=== PATIENT | female | born 1975 | race Caucasian/White ===

== ENCOUNTER 2023-04-28 20:17 | Emergency (ER) | payer MEDICAID ==
[~2023-04-28] VITALS: Ht 152.4 cm; Wt 99.8 kg
[2023-04-28 23:13] LABS: BASOPHILS # (AUTO) 0.1 K/uL (0.0-0.2); BASOPHILS % (AUTO) 0.7 % (0.0-2.0); EOSINOPHILS # (AUTO) 0.1 K/uL (0.0-0.7); EOSINOPHILS % (AUTO) 1.1 % (0.0-6.0); HEMATOCRIT 38 % (33-45); HEMOGLOBIN 12.6 g/dL (11.5-14.8); LYMPHOCYTES % (AUTO) 19.9 % (20.0-44.0); MEAN CORPUSCULAR HEMOGLOBIN 26 PG (26.0-33.0); MEAN CORPUSCULAR HGB CONC 33 g/dl (31.0-36.0); MEAN CORPUSCULAR VOLUME 79 fL (82-100); MONOCYTES # (AUTO) 0.7 K/uL (0.1-1.30); MONOCYTES % (AUTO) 7.2 % (2.0-12.0); NEUTROPHILS # (AUTO) 7.1 K/uL (1.8-8.9); NEUTROPHILS % (AUTO) 71.1 % (43.0-81.0); PLATELET COUNT (AUTO) 362 K/uL (150-450); RED BLOOD CELL COUNT(AUTO) 4.83 MIL/uL (4.0-5.2); RED CELL DISTRIBUTION WIDTH 18.7 % (11.5-15.0); WHITE BLOOD COUNT (AUTO) 9.9 K/uL (4.3-11.0)
[2023-04-28 23:29] LABS: APPEARANCE,URINE CLOUDY (CLEAR); BILIRUBIN,URINE 1+ (NEGATIVE); BLOOD, URINE TRACE-INTA Ery/uL (NEGATIVE); COLOR,URINE YELLOW (YELLOW); KETONES,URINE 2+ mg/dL (NEGATIVE); LEUKOCYTE ESTERASE ,URINE 1+ (NEGATIVE); NITRITE, URINE NEGATIVE (NEGATIVE); PH,URINE 5.5 (5.0-8.0); PROTEIN,URINE 1+ mg/dl (NEGATIVE); UGLUCOSE NEGATIVE (NEGATIVE); UROBILINOGEN,URINE 0.2 EU/dL (0.2)
[2023-04-28 23:30] LABS: PREGNANCY TEST URINE QUAL NEGATIVE (NEGATIVE)
[2023-04-28 23:37] LABS: CALCIUM, SERUM 8.9 mg/dL (8.5-10.1); CARBON DIOXIDE 26 mmol/L (21-32); CHLORIDE 103 mmol/L (98-107); CREATININE 0.8 mg/dL (0.6-1.3); GLUCOSE 85 mg/dL (74-106); POTASSIUM 3.5 mmol/L (3.5-5.1); SODIUM SERUM 140 mmol/L (136-145); UREA NITROGEN, BLOOD 7 mg/dL (7-18)
[2023-04-28 23:40] LABS: AMPHETAMINE, URINE NEGATIVE (NEGATIVE); BARBITURATE, URINE NEGATIVE (NEGATIVE); BENZODIAZEPINE, URINE NEGATIVE (NEGATIVE); CANNABINOID, URINE NEGATIVE (NEGATIVE); COCCAINE, URINE NEGATIVE (NEGATIVE); OPIATE, URINE NEGATIVE (NEGATIVE); PHENCYCLIDINE SCREEN,URINE NEGATIVE (NEGATIVE)
[2023-04-28 23:43] LABS: ADD URINE CULTURE YES; BACTERIA,URINE Many /HPF (None Seen)
[2023-04-28 23:43] LABS: ALANINE AMINOTRANSFERASE 28 U/L (12-78); ALBUMIN 3.4 g/dL (3.4-5.0); ALCOHOL, BLOOD < 3 mg/dL (0-10); ALKALINE PHOSPHATASE 98 U/L (46-116); ASPARTATE AMINOTRANSFERASE 16 U/L (15-37); BILIRUBIN,TOTAL 0.3 mg/dL (0.2-1.0); SALICYLATE 2.9 mg/dL (2.8-20.0); TOTAL PROTEIN, SERUM 7.8 g/dL (6.4-8.2)
[2023-04-28 23:44] LABS: URIC ACID CRYSTALS,URINE Moderate /HPF (None Seen)
[2023-04-28 23:44] LABS: ACETAMINOPHEN <10 ug/ml (10-30)
[2023-04-28 23:45] LABS: FINE GRANULAR CASTS,URINE Rare /LPF (None Seen); HYALINE CASTS, URINE Rare /LPF (None Seen)
[2023-04-29] MEDS ORDERED: NITROFURANTOIN/MONOHYDRATE MACROCRYSTALS 100 MG CAPSULE ONE (01:30)
[2023-04-29] MEDS: NITROFURANTOIN/MONOHYDRATE MACROCRYSTALS 100 MG CAPSULE PO ONE (01:32)
[2023-04-29] MEDS ORDERED: LORAZEPAM 0.5 MG TABLET ONE (19:41)
[2023-04-29] MEDS: LORAZEPAM 1 MG TABLET PO ONE (19:43)
[2023-04-30 03:34] VITALS: BP 121/71; TEMP 98.2; O2SAT 98
== END 2023-04-29 20:00 ==
LOC: ER 20:37
DX: R45.851 Suicidal ideations (principal); F41.9 Anxiety disorder, unspecified; F20.9 Schizophrenia, unspecified; F32.A Depression, unspecified; Z20.822 Contact with and (suspected) exposure to COVID-19
CPT/HCPCS: 36415; 80053-TC; 81001; 84703-TC; 85025-TC; 87086-TC; G0480

== ENCOUNTER 2023-06-22 13:03 | Emergency (ER) | payer MEDICAID, OTHER ==
[~2023-06-22] VITALS: Ht 157.5 cm; Wt 99.8 kg
[2023-06-22 13:51] LABS: BASOPHILS # (AUTO) 0.1 K/uL (0.0-0.2); BASOPHILS % (AUTO) 1.4 % (0.0-2.0); EOSINOPHILS # (AUTO) 0.1 K/uL (0.0-0.7); EOSINOPHILS % (AUTO) 1.4 % (0.0-6.0); HEMATOCRIT 36 % (33-45); HEMOGLOBIN 11.6 g/dL (11.5-14.8); LYMPHOCYTES # (AUTO) 1.7 K/uL (0.8-4.8); LYMPHOCYTES % (AUTO) 21.3 % (20.0-44.0); MEAN CORPUSCULAR HEMOGLOBIN 25 PG (26.0-33.0); MEAN CORPUSCULAR HGB CONC 32 g/dl (31.0-36.0); MEAN CORPUSCULAR VOLUME 78 fL (82-100); MONOCYTES # (AUTO) 0.5 K/uL (0.1-1.30); MONOCYTES % (AUTO) 5.8 % (2.0-12.0); NEUTROPHILS # (AUTO) 5.7 K/uL (1.8-8.9); NEUTROPHILS % (AUTO) 70.1 % (43.0-81.0); PLATELET COUNT (AUTO) 437 K/uL (150-450); WHITE BLOOD COUNT (AUTO) 8.1 K/uL (4.3-11.0)
[2023-06-22 14:07] LABS: CALCIUM, SERUM 8.3 mg/dL (8.5-10.1); CARBON DIOXIDE 26 mmol/L (21-32); CHLORIDE 104 mmol/L (98-107); CREATININE 0.7 mg/dL (0.6-1.3); GLUCOSE 115 mg/dL (74-106); POTASSIUM 3.7 mmol/L (3.5-5.1); SODIUM SERUM 136 mmol/L (136-145); UREA NITROGEN, BLOOD 7 mg/dL (7-18)
[2023-06-22 14:19] LABS: ALANINE AMINOTRANSFERASE 50 U/L (12-78); ALBUMIN 3.3 g/dL (3.4-5.0); ALKALINE PHOSPHATASE 91 U/L (46-116); ASPARTATE AMINOTRANSFERASE 22 U/L (15-37); BILIRUBIN,TOTAL 0.2 mg/dL (0.2-1.0); NT-PRO BNP 48 pg/mL (0-125); TOTAL PROTEIN, SERUM 7.5 g/dL (6.4-8.2)
[2023-06-22 15:59] VITALS: BP 151/105; TEMP 98; O2SAT 99
== END 2023-06-22 15:59 | disposition home or self-care (01) ==
LOC: ER 13:51
DX: R07.89 Other chest pain (principal); F43.10 Post-traumatic stress disorder, unspecified; F32.A Depression, unspecified; F41.9 Anxiety disorder, unspecified; F20.9 Schizophrenia, unspecified; R10.2 Pelvic and perineal pain
CPT/HCPCS: 36415; 71045-TC; 80048-TC; 80076-TC; 83880; 84484-TC; 84702-TC; 85025-TC

== ENCOUNTER 2023-08-28 08:47 | Emergency (ER) | payer OTHER ==
[~2023-08-28] VITALS: Ht 157.5 cm; Wt 116.6 kg
[2023-08-28] MEDS ORDERED: ALBU18HF2 INH (09:40)
[2023-08-28] MEDS ORDERED: BENZ-13 PO (09:40)
[2023-08-28 09:50] VITALS: BP 141/95; TEMP 98.3; O2SAT 96
== END 2023-08-28 09:50 | disposition home or self-care (01) ==
LOC: ER 09:28
DX: J06.9 Acute upper respiratory infection, unspecified (principal); R05.9 Cough, unspecified; F41.9 Anxiety disorder, unspecified; F32.A Depression, unspecified; F20.9 Schizophrenia, unspecified

== ENCOUNTER 2023-10-14 23:55 | Emergency (ER) | payer OTHER ==
[~2023-10-14] VITALS: Ht 157.5 cm; Wt 116.6 kg
[~2023-10-14 23:55] MED LIST: ALBU18HF2 INH; BENZ-13 PO
[2023-10-15 00:46] VITALS: BP 129/102; TEMP 98.1; O2SAT 98
[2023-10-15] MEDS ORDERED: CLIN150C16 PO (02:29)
[2023-10-15] MEDS: BACITRACIN ZINC OINT PACKET 1 EA PACKET TP ONE (03:02)
--- NOTE | 2023-10-15 03:02 | NUR ---
Patient discharged to home in stable condition. Written and verbal after care instructions given. Patient verbalizes understanding of instruction.
== END 2023-10-15 03:02 | disposition home or self-care (01) ==
LOC: ER 23:59
DX: L03.031 Cellulitis of right toe (principal); F41.9 Anxiety disorder, unspecified; F32.A Depression, unspecified; F20.9 Schizophrenia, unspecified

== ENCOUNTER 2023-12-10 15:47 | Emergency (ER) | payer OTHER ==
[~2023-12-10] VITALS: Ht 157.5 cm; Wt 111.1 kg
[~2023-12-10 15:47] MED LIST changes: +CLIN150C16 PO
[2023-12-10 16:00] VITALS: BP 124/78; TEMP 98.3; O2SAT 96
[2023-12-10 16:32] LABS: BASOPHILS # (AUTO) 0.1 K/uL (0.0-0.2); BASOPHILS % (AUTO) 1.3 % (0.0-2.0); EOSINOPHILS # (AUTO) 0.1 K/uL (0.0-0.7); EOSINOPHILS % (AUTO) 1.7 % (0.0-6.0); HEMATOCRIT 38 % (33-45); HEMOGLOBIN 11.9 g/dL (11.5-14.8); LYMPHOCYTES # (AUTO) 2.2 K/uL (0.8-4.8); LYMPHOCYTES % (AUTO) 30.4 % (20.0-44.0); MEAN CORPUSCULAR HEMOGLOBIN 24 PG (26.0-33.0); MEAN CORPUSCULAR HGB CONC 32 g/dl (31.0-36.0); MEAN CORPUSCULAR VOLUME 76 fL (82-100); MONOCYTES # (AUTO) 0.7 K/uL (0.1-1.30); MONOCYTES % (AUTO) 9.2 % (2.0-12.0); NEUTROPHILS # (AUTO) 4.2 K/uL (1.8-8.9); NEUTROPHILS % (AUTO) 57.4 % (43.0-81.0); PLATELET COUNT (AUTO) 407 K/uL (150-450); RED BLOOD CELL COUNT(AUTO) 4.92 MIL/uL (4.0-5.2); WHITE BLOOD COUNT (AUTO) 7.3 K/uL (4.3-11.0)
[2023-12-10 16:44] LABS: CALCIUM, SERUM 9.1 mg/dL (8.5-10.1); CREATININE 0.8 mg/dL (0.6-1.3); POTASSIUM 3.4 mmol/L (3.5-5.1)
[2023-12-10 16:49] LABS: APPEARANCE,URINE TURBID (CLEAR); COLOR,URINE RED (YELLOW)
[2023-12-10 16:54] LABS: INR 1.01 (0.91-1.10); PARTIAL THROMBOPLASTIN TIME 26.8 SEC (24.3-34.3); PROTHROMBIN TIME 10.7 SECS (9.2-11.1)
[2023-12-10 16:55] LABS: ALBUMIN 3.6 g/dL (3.4-5.0); BILIRUBIN,DIRECT 0.1 mg/dL (0.0-0.2); BILIRUBIN,TOTAL 0.2 mg/dL (0.2-1.0); TOTAL PROTEIN, SERUM 7.9 g/dL (6.4-8.2)
[2023-12-10 16:55] LABS: BACTERIA,URINE Rare /HPF (None Seen); MUCUS,URINE Rare /LPF (None Seen); RBC,URINE 81-100 /HPF (0-2)
== END 2023-12-10 21:30 | disposition home or self-care (01) ==
LOC: ER 15:47
DX: N92.0 Excessive and frequent menstruation with regular cycle (principal); R53.1 Weakness; R53.83 Other fatigue; F41.9 Anxiety disorder, unspecified; F32.A Depression, unspecified; R10.2 Pelvic and perineal pain
CPT/HCPCS: 36415; 76856-TC; 80048-TC; 80076-TC; 81001; 84702-TC; 85025-TC; 85730-TC; 86850-TC

== ENCOUNTER 2024-09-19 15:44 | Emergency (ER) | payer OTHER ==
[~2024-09-19] VITALS: Ht 160 cm; Wt 108.9 kg
[2024-09-19] MEDS ORDERED: ACETAMINOPHEN ES 500 MG TABLET ONE (17:52)
[2024-09-19] MEDS ORDERED: ONDANSETRON HCL/PF 4 MG/2 ML VIAL ONE (17:52)
[2024-09-19] MEDS ORDERED: KETOROLAC TROMETHAMINE 15 MG/ML VIAL ONE (17:52)
[2024-09-19] MEDS ORDERED: LIDOCAINE 5% (PATCH) 1 EA PATCH TP ONE (17:52)
[2024-09-19] MEDS: IV NS 0.9% 1,000 ML BAG IV ONE (17:58)
[2024-09-19] MEDS: KETOROLAC TROMETHAMINE 15 MG/ML VIAL IV ONE (17:59)
[2024-09-19] MEDS: ONDANSETRON HCL/PF 4 MG/2 ML VIAL IVP ONE (17:59)
[2024-09-19] MEDS: ACETAMINOPHEN ES 500 MG TABLET PO ONE (18:00)
[2024-09-19] MEDS: LIDOCAINE 5% (PATCH) 1 EA PATCH TP SCH (18:00)
[2024-09-19 18:06] LABS: PLATELET COUNT (AUTO) 342 K/uL (150-450); RED BLOOD CELL COUNT(AUTO) 4.85 MIL/uL (4.0-5.2); RED CELL DISTRIBUTION WIDTH 16.5 % (11.5-15.0); WHITE BLOOD COUNT (AUTO) 9.8 K/uL (4.3-11.0)
[2024-09-19 18:07] LABS: APPEARANCE,URINE SLIGHTLY CLOUDY (CLEAR); BLOOD, URINE TRACE-INTA Ery/uL (NEGATIVE); LEUKOCYTE ESTERASE ,URINE TRACE (NEGATIVE); NITRITE, URINE NEGATIVE (NEGATIVE); UGLUCOSE NEGATIVE (NEGATIVE)
[2024-09-19 18:17] LABS: ADD URINE CULTURE YES; SQUAMOUS EPITHELIAL CELL,UR Many /HPF (None Seen)
[2024-09-19 18:25] LABS: CALCIUM, SERUM 9.4 mg/dL (8.5-10.1); CREATININE 0.7 mg/dL (0.6-1.3); SODIUM SERUM 137.0 mmol/L (136-145); UREA NITROGEN, BLOOD 16.0 mg/dL (7-18)
[2024-09-19 18:31] LABS: ASPARTATE AMINOTRANSFERASE 16.0 U/L (15-37); TOTAL PROTEIN, SERUM 7.4 g/dL (6.4-8.2)
[2024-09-19] MEDS ORDERED: CEPH-570 PO (18:37)
[2024-09-19] MEDS ORDERED: ONDA4TAB5 PO (18:37)
[2024-09-19 19:01] VITALS: BP 115/83; TEMP 97.9; O2SAT 97
== END 2024-09-19 19:02 | disposition home or self-care (01) ==
LOC: ER 15:51
DX: R51.9 Headache, unspecified (principal); R11.0 Nausea; R42 Dizziness and giddiness; M54.9 Dorsalgia, unspecified; F43.10 Post-traumatic stress disorder, unspecified; F20.9 Schizophrenia, unspecified; F32.A Depression, unspecified; F41.9 Anxiety disorder, unspecified; Z79.899 Other long term (current) drug therapy
CPT/HCPCS: 99284; 96374; 96361; 96375; 85025; 80048; 87086; 83690; 80076; 81001; 36415; J1885; J2405; J7030

== ENCOUNTER 2024-09-27 21:44 | Emergency (ER) | payer OTHER ==
[~2024-09-27] VITALS: Ht 160 cm; Wt 104.3 kg
[~2024-09-27 21:44] MED LIST changes: +CEPH-570 PO; +ONDA4TAB5 PO
[2024-09-27] MEDS ORDERED: ONDANSETRON HCL/PF 4 MG/2 ML VIAL ONE (22:17)
[2024-09-27] MEDS ORDERED: FAMOTIDINE/PF INJ 20 MG/2 ML VIAL IV ONE (22:17)
[2024-09-27] MEDS: FAMOTIDINE/PF INJ 20 MG/2 ML VIAL IV ONE (22:22)
[2024-09-27] MEDS: IV NS 0.9% 1,000 ML BAG IV ONE (22:22)
[2024-09-27] MEDS: ONDANSETRON HCL/PF 4 MG/2 ML VIAL IVP ONE (22:23)
[2024-09-27 22:28] LABS: PLATELET COUNT (AUTO) 351 K/uL (150-450); RED BLOOD CELL COUNT(AUTO) 4.36 MIL/uL (4.0-5.2); RED CELL DISTRIBUTION WIDTH 16.3 % (11.5-15.0); WHITE BLOOD COUNT (AUTO) 9.8 K/uL (4.3-11.0)
[2024-09-27 22:40] LABS: ASPARTATE AMINOTRANSFERASE 12.0 U/L (15-37); CALCIUM, SERUM 8.4 mg/dL (8.5-10.1); CREATININE 0.6 mg/dL (0.6-1.3); SODIUM SERUM 140.0 mmol/L (136-145); TOTAL PROTEIN, SERUM 6.8 g/dL (6.4-8.2); UREA NITROGEN, BLOOD 11.0 mg/dL (7-18)
[2024-09-28 00:21] LABS: PREGNANCY TEST URINE QUAL NEGATIVE (NEGATIVE)
[2024-09-28 00:32] LABS: APPEARANCE,URINE CLEAR (CLEAR)
[2024-09-28 00:33] LABS: BLOOD, URINE TRACE Ery/uL (NEGATIVE); UGLUCOSE NEGATIVE (NEGATIVE)
[2024-09-28 00:34] LABS: LEUKOCYTE ESTERASE ,URINE NEGATIVE (NEGATIVE); NITRITE, URINE NEGATIVE (NEGATIVE)
[2024-09-28 00:38] LABS: ADD URINE CULTURE YES; SQUAMOUS EPITHELIAL CELL,UR Few /HPF (None Seen); YEAST,URINE None Seen /HPF (None Seen)
[2024-09-28 01:58] VITALS: BP 125/84; TEMP 98.2; O2SAT 97
== END 2024-09-28 01:58 | disposition home or self-care (01) ==
LOC: ER 21:48
DX: R10.84 Generalized abdominal pain (principal); R11.2 Nausea with vomiting, unspecified; R19.7 Diarrhea, unspecified; F43.10 Post-traumatic stress disorder, unspecified; F32.A Depression, unspecified; F41.9 Anxiety disorder, unspecified; Z79.899 Other long term (current) drug therapy
CPT/HCPCS: 99285; 74176; 96374; 76856; 96361; 96375; 85025; 80048; 87077; 83690; 80076; 36415; 87086; 84703; 87186; 81001; J1308; J2405; J7030

== ENCOUNTER 2024-11-24 10:06 | Emergency (ER) | payer OTHER ==
[~2024-11-24] VITALS: Ht 160 cm; Wt 108.9 kg
[2024-11-24 10:52] LABS: PLATELET COUNT (AUTO) 342 K/uL (150-450); RED BLOOD CELL COUNT(AUTO) 4.40 MIL/uL (4.0-5.2); RED CELL DISTRIBUTION WIDTH 15.6 % (11.5-15.0); WHITE BLOOD COUNT (AUTO) 5.3 K/uL (4.3-11.0)
[2024-11-24 11:00] LABS: PREGNANCY TEST URINE QUAL NEGATIVE (NEGATIVE)
[2024-11-24 11:01] LABS: APPEARANCE,URINE CLEAR (CLEAR); BLOOD, URINE TRACE-INTA Ery/uL (NEGATIVE); LEUKOCYTE ESTERASE ,URINE NEGATIVE (NEGATIVE); NITRITE, URINE NEGATIVE (NEGATIVE); UGLUCOSE NEGATIVE (NEGATIVE)
[2024-11-24 11:02] LABS: CALCIUM, SERUM 8.9 mg/dL (8.5-10.1); CREATININE 0.8 mg/dL (0.6-1.3); SODIUM SERUM 142.0 mmol/L (136-145); UREA NITROGEN, BLOOD 13.0 mg/dL (7-18)
[2024-11-24 11:04] LABS: ADD URINE CULTURE NO; SQUAMOUS EPITHELIAL CELL,UR Few /HPF (None Seen)
[2024-11-24 11:06] LABS: ASPARTATE AMINOTRANSFERASE 11.0 U/L (15-37); TOTAL PROTEIN, SERUM 7.0 g/dL (6.4-8.2)
[2024-11-24] MEDS: MORPHINE SULFATE INJ 2 MG/ML DISP.SYRIN IV ONE (11:27)
[2024-11-24] MEDS: ONDANSETRON HCL/PF 4 MG/2 ML VIAL IV ONE (11:27)
[2024-11-24 13:59] VITALS: BP 137/86; TEMP 98.5; O2SAT 100
== END 2024-11-24 13:59 | disposition home or self-care (01) ==
LOC: ER 10:20
DX: R10.11 Right upper quadrant pain (principal); R11.0 Nausea; K76.0 Fatty (change of) liver, not elsewhere classified
CPT/HCPCS: 36415; 76700-TC; 80048-TC; 80076-TC; 81001; 83690-TC; 84703-TC; 85025-TC

== ENCOUNTER 2024-12-10 14:31 | Emergency (ER) | payer OTHER ==
[~2024-12-10] VITALS: Ht 160 cm; Wt 108.0 kg
[2024-12-10] MEDS ORDERED: ONDANSETRON HCL/PF 4 MG/2 ML VIAL ONE (15:27)
[2024-12-10] MEDS: IV NS 0.9% 1,000 ML BAG IV ONE (15:33)
[2024-12-10] MEDS: ONDANSETRON HCL/PF 4 MG/2 ML VIAL IVP ONE (15:34)
[2024-12-10 15:53] LABS: PLATELET COUNT (AUTO) 336 K/uL (150-450); RED BLOOD CELL COUNT(AUTO) 4.84 MIL/uL (4.0-5.2); RED CELL DISTRIBUTION WIDTH 15.9 % (11.5-15.0); WHITE BLOOD COUNT (AUTO) 8.1 K/uL (4.3-11.0)
[2024-12-10 16:01] LABS: CALCIUM, SERUM 9.0 mg/dL (8.5-10.1); CREATININE 0.9 mg/dL (0.6-1.3); SODIUM SERUM 142.0 mmol/L (136-145); UREA NITROGEN, BLOOD 12.0 mg/dL (7-18)
[2024-12-10 16:07] LABS: ASPARTATE AMINOTRANSFERASE 22.0 U/L (15-37); TOTAL PROTEIN, SERUM 7.6 g/dL (6.4-8.2)
[2024-12-10] MEDS ORDERED: ONDA4TAB11 PO (16:31)
[2024-12-10 16:47] VITALS: BP 128/82; TEMP 98; O2SAT 97
== END 2024-12-10 16:48 | disposition home or self-care (01) ==
LOC: ER 14:37
DX: T67.5XXA Heat exhaustion, unspecified, initial encounter (principal); E87.8 Other disorders of electrolyte and fluid balance, not elsewhere classified; E86.0 Dehydration; Z59.41 Food insecurity; X30.XXXA Exposure to excessive natural heat, initial encounter; Y93.89 Activity, other specified; Y92.89 Other specified places as the place of occurrence of the external cause; Y99.9 Unspecified external cause status
CPT/HCPCS: 99284; 96374; 96361; 93005; 85025; 80048; 80076; 36415; J2405; J7030